=== PATIENT | female | born 1950 | race Caucasian/White ===

== ENCOUNTER 2016-08-12 10:46 | Emergency (ER) | payer MEDICARE | END 2016-08-12 11:55 | disposition home or self-care (01) | LOC: ER1 10:46 | DX: S83.421A Sprain of lateral collateral ligament of right knee, initial encounter (principal); Z88.1 Allergy status to other antibiotic agents; Z88.5 Allergy status to narcotic agent; X50.9XXA Other and unspecified overexertion or strenuous movements or postures, initial encounter; Y92.009 Unspecified place in unspecified non-institutional (private) residence as the place of occurrence of the external cause | CPT/HCPCS: 73564; 99283 ==